=== PATIENT | female | born 1990 | race Caucasian/White ===

== ENCOUNTER 2023-02-20 11:22 | Emergency (ER) | payer SELFPAY ==
[2023-02-20] MEDS ORDERED: Ketorolac Tromethamine 30 MG/ML VIAL ONE (14:04)
== END 2023-02-20 14:12 | disposition home or self-care (01) ==
LOC: MADERS 11:22
DX: M79.671 Pain in right foot (principal); F17.210 Nicotine dependence, cigarettes, uncomplicated; E11.9 Type 2 diabetes mellitus without complications
CPT/HCPCS: 96372; J1885

== ENCOUNTER 2023-02-22 12:22 | Emergency (ER) | payer SELFPAY ==
[2023-02-22] MEDS ORDERED: Cephalexin 500 MG CAP ONE (13:06)
[2023-02-22] MEDS ORDERED: Acetaminophen 500 MG TAB ONE (13:06)
== END 2023-02-22 13:16 | disposition home or self-care (01) ==
LOC: MADERS 12:22
DX: L03.115 Cellulitis of right lower limb (principal); F17.210 Nicotine dependence, cigarettes, uncomplicated
CPT/HCPCS: 99283

== ENCOUNTER 2023-02-25 15:29 | Emergency (ER) | payer SELFPAY ==
[2023-02-25] MEDS ORDERED: Boostrix 0.5 ML (Tdap) VIAL (>/=7 yrs of age) ONE (16:04)
[2023-02-25] MEDS ORDERED: Lidocaine 1% (PF) 30 ML VIAL ONE (16:04)
[2023-02-25] MEDS ORDERED: Bacitracin 1 PK ONE (16:26)
== END 2023-02-25 16:40 | disposition home or self-care (01) ==
LOC: MADERS 15:29
DX: S61.011A Laceration without foreign body of right thumb without damage to nail, initial encounter (principal); F17.210 Nicotine dependence, cigarettes, uncomplicated; W26.0XXA Contact with knife, initial encounter; Y93.G1 Activity, food preparation and clean up; Y99.0 Civilian activity done for income or pay; Z23 Encounter for immunization
CPT/HCPCS: 12001; 90471; 90715; J2001